=== PATIENT | male | born 1955 | race Caucasian/White ===

== ENCOUNTER 2017-01-21 06:31 | Day surgery (SDC) | payer OTHER ==
[2017-01-20 13:02] VITALS: BMI 27.4
[~2017-01-21 06:31] MED LIST: Cyclopentolate 1% Opth Drop 2 ML BOT FS SCH; EPINEPHrine 0.3 MG in Ophthalmic Irrigation Solution 500 ML FS SCH; Phenylephrine HCl 2.5% Ophth Soln 5 ML BOT FS SCH
[2017-01-21] MEDS ORDERED: Phenylephrine HCl 2.5% Ophth Soln 5 ML BOT ONE (06:56)
[2017-01-21] MEDS ORDERED: Cyclopentolate 1% Opth Drop 2 ML BOT ONE (06:56)
[2017-01-21] MEDS ORDERED: Midazolam HCl 2 mg/2 ml Vial ONE ×2 (07:48→08:38)
[2017-01-21] MEDS ORDERED: Lidocaine 2% PF 5 ML VIAL ONE (08:38)
[2017-01-21] MEDS ORDERED: Fentanyl 100 MCG/2 ML VIAL ONE ×2 (08:38→10:15)
[2017-01-21] MEDS ORDERED: Diprivan 20 ML ONE (08:38)
[2017-01-21] MEDS ORDERED: Ondansetron HCl/PF 4 MG/2 ML Vial ONE (08:38)
--- NOTE | 2017-01-21 14:02 | OP ---
DATE OF PROCEDURE: 01/21/2017 PREOPERATIVE DIAGNOSIS: Posteriorly dislocated intraocular lens, left eye. POSTOPERATIVE DIAGNOSIS: Posteriorly dislocated intraocular lens, left eye. PROCEDURE PERFORMED: Pars plana vitrectomy, IOL repositioning, left eye. SURGEON: Nlies Ndiaye M.D. ANESTHESIA: General endotracheal. COMPLICATIONS: None. PROCEDURE IN DETAIL: The patient was identified in the preoperative holding area. [facility] procedure on the left eye had been obtained. The patient was tr ansported to the operative suite where general endotracheal anesthesia was initiated. The patient wa s prepped and draped in the usual sterile manner for ophthalmic surgery on the left eye. Lid speculu m was placed in the left eye. Retrobulbar block left eye was placed. Trocars were placed supratempo rally, inferotemporally, and supranasally. Infusion line was placed inferotemporally. Chandelier wa s placed inferiorly. Core vitrectomy was performed. The lens was noted to be dislocated inferiorly. A 20 gauge sclerotomies were created at 3 and 9 o'clock positions. Twenty gauge forceps were inser gael into the eye and the haptic was grasped. Haptic was pierced with 9-0 Prolene suture and the Prol kimbelry was then externalized 1 mm posterior to the limbus temporally. Same procedure was repeated nasal ly and the sutures were tightened until the intraocular lens was centered. Residual capsule material was removed using a vitrector when a complete vitrectomy was performed. Prophylactic laser was plac ed behind the sclerotomy sites. A 20 gauge sclerotomy was suture closed with 7-0 Vicryl suture. Con junctiva was closed with 6-0 plain gut suture. Retrobulbar Kenalog and subconjunctival Ancef were pl aced. Atropine and antibiotic ointment were placed, and the eye was patched and shielded. The patie nt was taken to the postoperative recovery unit in good condition having suffered no immediate periop erative complications. DISCHARGE INSTRUCTIONS: The patient was instructed to keep patch and shield on, avoid lifting or magy ding, and follow up in the morning with Dr. Ndiaye.
[2017-01-21] MEDS ORDERED: Lidocaine 1% PF 5 ML VIAL ONE (17:13)
[2017-01-21] MEDS ORDERED: Propofol 200 MG/20 ML VIAL ONE (17:13)
== END 2017-01-21 12:28 | disposition home or self-care (01) ==
LOC: SDC 06:31
PROVIDERS: ATTEND Ophthalmology Retina Specialist
PROC: 08B53ZZ Excision of Left Vitreous, Percutaneous Approach (ICD-10-PCS; principal; 2017-01-21)
PROC: 08SK3ZZ Reposition Left Lens, Percutaneous Approach (ICD-10-PCS; principal; 2017-01-21)
DX: T85.22XA Displacement of intraocular lens, initial encounter (principal); H43.392 Other vitreous opacities, left eye; F17.210 Nicotine dependence, cigarettes, uncomplicated; J45.909 Unspecified asthma, uncomplicated; Z98.42 Cataract extraction status, left eye; Z96.1 Presence of intraocular lens; Z79.899 Other long term (current) drug therapy; Z88.0 Allergy status to penicillin; Z91.018 Allergy to other foods
CPT/HCPCS: J0171; J2001; J2250; J2405; J2704; J3010; J7620